=== PATIENT | male | born 1990 | race Caucasian/White ===

== ENCOUNTER 2023-09-10 19:49 | Emergency (ER) | payer OTHER ==
[2023-09-10] MEDS ORDERED: Iopamidol 612 MG/ML 100 ML Bottle IVPUSH ONE (20:29)
[2023-09-10] MEDS ORDERED: Clindamycin HCl 150 MG Cap PO STA (21:35)
== END 2023-09-10 21:55 | disposition home or self-care (01) ==
LOC: JD.ED 19:49
DX: L03.211 Cellulitis of face (principal); K02.9 Dental caries, unspecified; F17.210 Nicotine dependence, cigarettes, uncomplicated; Z88.0 Allergy status to penicillin; Z91.041 Radiographic dye allergy status
CPT/HCPCS: 70487; 99283; A9270; Q9967